=== PATIENT | female | born 1985 ===

== ENCOUNTER 2016-08-07 23:09 | Emergency (ER) | payer MEDICAID ==
[2016-08-07 23:20] VITALS: BP 112/75; PULSE 80; TEMP 98.1; O2SAT 98
--- NOTE | 2016-08-07 23:45 | C.PDOC ---
History Of Present Illness Patient is a 31 year old female who presents to the ER with a complaint of an itchy rash to her neck and upper chest. Patient states she has applied cortisone with no relief. Patient denies any SOB, throat swelling or difficulty swallowing. Time Seen by Provider: 08/07/16 23:34 Chief Complaint (Nursing): Abnormal Skin Integrity History Per: Patient History/Exam Limitations: no limitations Onset/Duration Of Symptoms: Hrs Current Symptoms Are (Timing): Still Present Location Of Injury: Anterior: Chest, Neck, Posterior: Neck Quality Of Symptoms: Itching Recent travel outside of the [place]: No Past Medical History Reviewed: Historical Data, Nursing Documentation, Vital Signs Vital Signs: Last Vital Signs Temp 98.1 F 08/07/16 23:18 Pulse 80 08/07/16 23:18 Resp 20 08/07/16 23:57 BP 112/75 08/07/16 23:18 Pulse Ox 98 08/08/16 01:18 - Medical History PMH: No Chronic Diseases - [facility] Procedures LAPAROSCOPIC CHOLECYSTECTOMY (10/11/12) Family History: States: Unknown Family Hx - Social History Hx Tobacco Use: No Hx Alcohol Use: No Hx Substance Use: No - Immunization History Hx Tetanus Toxoid Vaccination: No Hx Influenza Vaccination: No Hx Pneumococcal Vaccination: No Review Of Systems ENT: Negative for: Throat Swelling, Other (Difficulty swallowing) Respiratory: Negative for: Shortness of Breath Skin: Positive for: Rash Physical Exam - Physical Exam Appears: Non-toxic, No Acute Distress Skin: Warm, Dry, Rash (Hyperpigmented, scaly, around neck, greater to posterior aspect, extending to upper chest.) Head: Atraumatic, Normacephalic Eye(s): bilateral: Normal Inspection, PERRL Tongue: No Swelling Lips: No Swelling Neck: Normal, Normal ROM Respiratory: Normal Breath Sounds, No Rhonchi, No Wheezing Neurological/Psych: Oriented x3, Normal Speech, Normal Cognition ED Course And Treatment O2 Sat by Pulse Oximetry: 98 (Room air) Pulse Ox Interpretation: Normal Disposition Counseled Patient/Family Regarding: Diagnosis, Need For Followup, Rx Given - Disposition Referrals: [facility] [Outside] Disposition: HOME/ ROUTINE Disposition Time: 23:43 Condition: STABLE Additional Instructions: Keep skin clean and dry apply oint prescribed Follow up with your doctor Return to ER if worse Prescriptions: Cetirizine HCl [Zyrtec] 10 mg PO DAILY #20 tab.rapdis Triamcinolone 0.25% [Triamcinolone Acetonide] 1 appl TP BID #30 g Instructions: Dermatitis (ED) Forms: Work Excuse - Clinical Impression Clinical Impression: Dermatitis, Skin irritation - Scribe Statement The provider has reviewed the documentation as recorded by the Scribyara Orosco All medical record entries made by the Sakshiibyara were at my direction and personally dictated by me. I have reviewed the chart and agree that the record accurately reflects my personal performance of the history, physical exam, medical decision making, and the department course for this patient. I have also personally directed, reviewed, and agree with the discharge instructions and disposition.
[2016-08-07 23:57] VITALS: RESP 20
== END 2016-08-07 23:57 | disposition home or self-care (01) ==
LOC: C.ER 23:09
DX: L30.9 Dermatitis, unspecified (principal)

== ENCOUNTER 2016-09-06 13:27 | Emergency (ER) | payer MEDICAID ==
[2016-09-06] MEDS ORDERED: Sodium Chloride 0.9% 1,000 ML IV STA (14:16)
[2016-09-06 14:31] LABS: BASO # 0.1 K/uL (0.0-0.2); BASO % 0.6 % (0.0-2.0); EOS # 0.3 K/uL (0.0-0.7); EOS % 1.7 % (0.0-4.0); HEMOGLOBIN 13.5 g/dL (11.0-16.0); LYMPH # 2.3 K/uL (1.0-4.3); MEAN CELL VOLUME 89.8 fL (81.0-99.0); MEAN CORPUSCULAR HEMOGLOBIN 29.8 pg (27.0-31.0); MEAN CORPUSCULAR HGB CONC 33.2 g/dL (33.0-37.0); MEAN PLATELET VOLUME 7.1 fL (7.2-11.7); MONO # 1.5 K/uL (0.0-0.8); MONO % 9.9 % (0.0-10.0); NEUT # 11.3 K/uL (1.8-7.0); NEUT % 72.8 % (50.0-75.0); RBC 4.52 Mil/uL (3.80-5.20); RED CELL DISTRIBUTION WIDTH 13.2 % (11.5-14.5); WHITE BLOOD COUNT 15.5 K/uL (4.8-10.8)
[2016-09-06] MEDS ORDERED: Dexamethasone 4 mg/1 ml ONE (14:42)
[2016-09-06 14:59] LABS: ALBUMIN 3.8 g/dL (3.5-5.0)
[2016-09-06 15:02] LABS: GFR AFRICAN-AMERICAN > 60; GFR NON-AFRICAN AMERICAN > 60
[2016-09-06 15:03] LABS: ALB/GLOB RATIO 0.8 (1.0-2.1); ALT/SGPT 36 U/L (9-52); AST/SGOT 47 U/L (14-36); BLOOD UREA NITROGEN 10 mg/dL (7-17); CALCIUM 8.8 mg/dl (8.6-10.4)
--- NOTE | 2016-09-06 15:04 | C.PDOC ---
History Of Present Illness 31 yr old female presents to the ER with complaints of sore throat for the past 5 days. However, patient states she feels like her throat is getting swollen and finds it hard to swallow and talk. Patient denies fever, chest pain, SOB or vomiting. Time Seen by Provider: 09/06/16 13:40 Chief Complaint (Nursing): ENT Problem History Per: Patient History/Exam Limitations: None Onset/Duration Of Symptoms: Days (5), Worse Since (yesterday ) Past Medical History Reviewed: Historical Data, Nursing Documentation, Vital Signs Vital Signs: Last Vital Signs Temp 97.8 F 09/06/16 17:46 Pulse 80 09/06/16 17:46 Resp 18 09/06/16 17:46 BP 110/72 09/06/16 17:46 Pulse Ox 100 09/06/16 18:11 Surgical History: Cholecystectomy - [facility] Procedures LAPAROSCOPIC CHOLECYSTECTOMY (10/11/12) Family History: States: No Known Family Hx - Social History Hx Tobacco Use: No Hx Alcohol Use: No Hx Substance Use: No - Immunization History Hx Tetanus Toxoid Vaccination: No Hx Influenza Vaccination: No Hx Pneumococcal Vaccination: No Review Of Systems Except As Marked, All Systems Reviewed And Found Negative. Constitutional: Negative for: Fever ENT: Positive for: Throat Pain (Sore throat ), Throat Swelling, Other ((+) Hard to swallow and talk ) Cardiovascular: Negative for: Chest Pain Respiratory: Negative for: Shortness of Breath Gastrointestinal: Negative for: Vomiting Physical Exam - Physical Exam Appears: Non-toxic, No Acute Distress Skin: Warm, Dry, No Rash Head: Atraumatic, Normacephalic Oral Mucosa: Moist Throat: Erythema, Exudate, Other ((+) Hot potatoe voice. Swelling of the left peritonsillar area with uvula deviated to the right. ) Neck: Normal, Normal ROM, Supple Chest: Symmetrical, No Tenderness Cardiovascular: Rhythm Regular, No Murmur Respiratory: Normal Breath Sounds, No Rales, No Rhonchi, No Stridor, No Wheezing Extremity: Normal ROM, No Swelling Neurological/Psych: Oriented x3, Normal Speech, Normal Motor ED Course And Treatment - Laboratory Results Result Diagrams: 09/06/16 14:28 09/06/16 14:28 O2 Sat by Pulse Oximetry: 100 - CT Scan/US CT soft tissue neck Other Rad Studies (CT/US): Read By Radiologist, Radiology Report Reviewed CT/US Interpretation: Accession No. : [id number]. Patient Name / ID : PENG GAYLE / [id number]. Exam Date : 09/06/2016 15:55:00 ( Approved ). Study Comment : Sex / Age : F / 31Y. Creator : Shreyas Wolff MD. Dictator : Shreyas Wolff MD. Distance Learning Unit Leader : Plastic Tile Layer : Shreyas Wolff MD. Approver2 : Report Date : 09/06/2016 16:36:22. My Comment : . PROCEDURE: CT neck dated 09/06/2016. HISTORY: Questionable left peritonsillar abscess. COMPARISON: No prior. TECHNIQUE: CT of the neck w performed in standard fashion following intravenous injection of approximately 100 cc Omnipaque 350 contrast material. Additional 2 dimensional sagittal and coronal reformats generated. Radiation dose: DLP 408.61 mGy-cm. This CT exam was performed using one or more of the following dose reduction techniques: Automated exposure control, adjustment of the mA and/or kV according to patient size, and/or use of iterative reconstruction technique. . Findings: The at current study reveals enlargement of the palatine tonsils left greater than right. Findings may represent tonsillitis however no definitive evidence of discrete peritonsillar fluid collection seen at this time. Note however that streak and beam hardening artifact arising from dental amalgam as well as multiple on radiopaque jewelry a partially obscure the oral cavity. . The tonsils encroach into the oropharynx left greater than right, reducing diameter of the oropharyngeal airway. Adenoids are also well enlarged which encroach anteriorly reducing the nasopharyngeal airway. There is mild asymmetry of the vallecula which could be secondary to on encroachment of enlarged lingual tonsils and possibly some residual/retained secretion. Direct visualization could confirm. The free margin of the epiglottis is not well delineated. There is also asymmetry of the aryepiglottic folds and pyriform sinuses, the left- side of which are not visualized possibly due to some edema or residual/ retained secretion as well. Vocal cords are midline and appear symmetric. The remaining airway is patent. No large cervical mass or collection. There is enlargement of the jugulodigastric lymph nodes. The largest left-sided jugulodigastric lymph node measures approximately 18 mm. Largest right-sided jugulodigastric lymph node measures approximately 17.2 mm. These enlarged lymph nodes are likely reactive. There are additional multiple small to medium-sized bilateral cervical lymph nodes seen within the within the posterior cervical spaces, submandibular and submental regions. Parotid and submandibular glands unremarkable with no masses collections or calcifications. Crossing streak and beam hardening artifact arising from the dense clavicles and shoulder girdles on partially obscure the thyroid gland. Questionable small approximately 4 mm elliptical shaped low-attenuation anteromedial aspect left lobe thyroid gland. Thyroid ultrasound followup could be performed for further evaluation. Mild mucosal thickening left chamber sphenoid sinus. Avila. Lung apices are clear. . There is minor straightening and minimal reversal of the normal upper cervical lordosis which could be secondary to patient positioning gantry however underlying element of muscle spasm not excluded. Impression: There is enlargement of the palatine tonsils left greater than right most likely representing tonsillitis. No definitive evidence of peritonsillar abscess collection. . The tonsils encroach medially reducing the diameter of the ramirez pharyngeal airway. Enlarged adenoids and suspected mild enlargement of the lingual tonsils. The adenoids encroach anteriorly and reduce the nasopharyngeal airway. The lingual tonsils probably encroach posteriorly and inferiorly into the vallecula with asymmetric appearance of the vallecular. There is also asymmetry of the aryepiglottic folds and pyriform sinuses left- side of which are not visualized -nonspecific. Some residual and or retained secretion may contribute. Progress Note: On re-evaluation patient feels better, tolerates po, afebrile, no difficulty breathing. CT is negative for pertonsillar abscess. Case was d/w ED attending who agreed with the plan to d/c patient home. Medical Decision Making Medical Decision Making: PLAN: * CBC * CMP * Rapid Strep * HCG * Urinalysis * Decadron IVP * Toradol IVP * Sodium Chloride IV Disposition - Disposition Referrals: Jin Son MD [Staff Provider] - Disposition: HOME/ ROUTINE Disposition Time: 17:52 Condition: IMPROVED Additional Instructions: Follow up with PMD and ENT within 1-2 days. Return to ED if feel worse. Prescriptions: Clindamycin [Cleocin] 300 mg PO Q6 #28 cap Ibuprofen [Motrin Tab] 600 mg PO Q8 #30 tab Instructions: Tonsillitis (ED) - Clinical Impression Clinical Impression: Tonsillitis - PA / MAINTENANCE PERSON / Resident Statement MD/DO has reviewed & agrees with the documentation as recorded. - Scribe Statement The provider has reviewed the documentation as recorded by the Scribe Ofe Maldonado All medical record entries made by the Scribe were at my direction and personally dictated by me. I have reviewed the chart and agree that the record accurately reflects my personal performance of the history, physical exam, medical decision making, and the department course for this patient. I have also personally directed, reviewed, and agree with the discharge instructions and disposition.
[2016-09-06 15:42] VITALS: RESP 18
[2016-09-06] MEDS ORDERED: Iohexol 350mg/ml 100 ML ONE (15:42)
--- NOTE | 2016-09-06 16:37 | CT ---
PROCEDURE: CT neck dated 09/06/2016 HISTORY: Questionable left peritonsillar abscess COMPARISON: No prior TECHNIQUE: CT of the neck w performed in standard fashion following intravenous injection of approximately 100 cc Omnipaque 350 contrast material. Additional 2 dimensional sagittal and coronal reformats generated. Radiation dose: DLP 408.61 mGy-cm This CT exam was performed using one or more of the following dose reduction techniques: Automated exposure control, adjustment of the mA and/or kV according to patient size, and/or use of iterative reconstruction technique. . Findings: The at current study reveals enlargement of the palatine tonsils left greater than right. Findings may represent tonsillitis however no definitive evidence of discrete peritonsillar fluid collection seen at this time. Note however that streak and beam hardening artifact arising from dental amalgam as well as multiple on radiopaque jewelry a partially obscure the oral cavity. . The tonsils encroach into the oropharynx left greater than right, reducing diameter of the oropharyngeal airway. Adenoids are also well enlarged which encroach anteriorly reducing the nasopharyngeal airway There is mild asymmetry of the vallecula which could be secondary to on encroachment of enlarged lingual tonsils and possibly some residual/retained secretion. Direct visualization could confirm. The free margin of the epiglottis is not well delineated. There is also asymmetry of the aryepiglottic folds and pyriform sinuses, the left-side of which are not visualized possibly due to some edema or residual/ retained secretion as well. Vocal cords are midline and appear symmetric. The remaining airway is patent. No large cervical mass or collection. There is enlargement of the jugulodigastric lymph nodes. The largest left-sided jugulodigastric lymph node measures approximately 18 mm. Largest right-sided jugulodigastric lymph node measures approximately 17.2 mm. These enlarged lymph nodes are likely reactive. There are additional multiple small to medium-sized bilateral cervical lymph nodes seen within the within the posterior cervical spaces, submandibular and submental regions Parotid and submandibular glands unremarkable with no masses collections or calcifications. Crossing streak and beam hardening artifact arising from the dense clavicles and shoulder girdles on partially obscure the thyroid gland. Questionable small approximately 4 mm elliptical shaped low-attenuation anteromedial aspect left lobe thyroid gland. Thyroid ultrasound followup could be performed for further evaluation. Mild mucosal thickening left chamber sphenoid sinus. Avila Lung apices are clear. . There is minor straightening and minimal reversal of the normal upper cervical lordosis which could be secondary to patient positioning gantry however underlying element of muscle spasm not excluded. Impression: There is enlargement of the palatine tonsils left greater than right most likely representing tonsillitis. No definitive evidence of peritonsillar abscess collection. . The tonsils encroach medially reducing the diameter of the ramirez pharyngeal airway. Enlarged adenoids and suspected mild enlargement of the lingual tonsils. The adenoids encroach anteriorly and reduce the nasopharyngeal airway. The lingual tonsils probably encroach posteriorly and inferiorly into the vallecula with asymmetric appearance of the vallecular. There is also asymmetry of the aryepiglottic folds and pyriform sinuses left-side of which are not visualized -nonspecific. Some residual and or retained secretion may contribute. Enlarged bilateral jugulodigastric lymph nodes .
[2016-09-06] MEDS ORDERED: Clindamycin 600mg/50ml D5W 600 MG/50 ML VIAL IVPB STA (17:20)
[2016-09-06] MEDS ORDERED: Clindamycin 600mg/50ml D5W 600 MG/50 ML VIAL IVPB ONE (17:25)
[2016-09-06 17:47] VITALS: BP 110/72; PULSE 80; TEMP 97.8
[2016-09-06 18:10] VITALS: O2SAT 100
== END 2016-09-06 18:29 | disposition home or self-care (01) ==
LOC: C.ER 13:27
DX: J03.90 Acute tonsillitis, unspecified (principal)
CPT/HCPCS: 70491; 80053; 84703; 85025; 87070; 87086; 87430; 96361; 96365; 96375; 99283; J1100; J1885; J7040; Q9967

== ENCOUNTER 2017-03-02 12:29 | Emergency (ER) | payer MEDICAID ==
[2017-03-02 12:58] VITALS: BMI 25.8
[2017-03-02 13:03] VITALS: BP 116/83; PULSE 113; RESP 18; TEMP 99.6; O2SAT 100
[2017-03-02] MEDS ORDERED: Amoxicillin-Clav 875-125 mg Tab PO STA (13:37)
[2017-03-02] MEDS ORDERED: Dexamethasone 4 mg/1 ml IM STA (13:37)
[2017-03-02] MEDS ORDERED: Dexamethasone 4 mg/1 ml ONE (13:47)
[2017-03-02] MEDS ORDERED: Amoxicillin-Clav 875-125 mg Tab PO ONE (13:47)
--- NOTE | 2017-03-02 14:18 | C.PDOC ---
Time Seen by Provider: 03/02/17 13:27 Chief Complaint (Nursing): ENT Problem History Per: Patient Onset/Duration Of Symptoms: Days (1) Current Symptoms Are (Timing): Still Present Location Of Pain: Throat Associated Symptoms: Sore Throat Severity: Moderate Additional History Per: Prior Records Past Medical History Reviewed: Historical Data, Nursing Documentation, Vital Signs Vital Signs: Last Vital Signs Temp 99.6 F 03/02/17 12:58 Pulse 113 H 03/02/17 12:58 Resp 18 03/02/17 12:58 BP 116/83 03/02/17 12:58 Pulse Ox 100 03/02/17 14:18 - Medical History PMH: No Chronic Diseases Surgical History: Cholecystectomy - [facility] Procedures LAPAROSCOPIC CHOLECYSTECTOMY (10/11/12) Family History: States: Unknown Family Hx - Social History Hx Tobacco Use: Yes Hx Alcohol Use: No Hx Substance Use: No - Immunization History Hx Tetanus Toxoid Vaccination: No Hx Influenza Vaccination: No Hx Pneumococcal Vaccination: No Review Of Systems Except As Marked, All Systems Reviewed And Found Negative. Constitutional: Negative for: Fever ENT: Positive for: Throat Pain, Throat Swelling Respiratory: Negative for: Cough, Shortness of Breath Gastrointestinal: Negative for: Vomiting, Abdominal Pain Musculoskeletal: Negative for: Neck Pain Skin: Negative for: Rash Neurological: Negative for: Weakness, Numbness Physical Exam - Physical Exam Appears: Non-toxic, No Acute Distress Skin: Normal Color, Warm, Dry, No Rash Head: Atraumatic, Normacephalic Eye(s): bilateral: Normal Inspection, PERRL, EOMI Oral Mucosa: Moist, No Drooling, No Trismus Throat: Exudate, No Drooling, No Mass, Other (symmetrically enlarged tonsils) Neck: Normal ROM, Supple Lymphatic: No Adenopathy Cardiovascular: Rhythm Regular Respiratory: Normal Breath Sounds, No Accessory Muscle Use, No Stridor Gastrointestinal/Abdominal: Soft, No Tenderness, No Organomegaly Back: No CVA Tenderness Extremity: Normal ROM Neurological/Psych: Oriented x3, Normal Speech, Normal Motor, Normal Sensation ED Course And Treatment O2 Sat by Pulse Oximetry: 100 Pulse Ox Interpretation: Normal Reassessment Condition: Improved Disposition Counseled Patient/Family Regarding: Diagnosis, Need For Followup, Rx Given - Disposition Referrals: Jin Son MD [Staff Provider] - Disposition: HOME/ ROUTINE Disposition Time: 14:20 Condition: STABLE Additional Instructions: Follow up with an ENT specialist for further evaluation and treatment. Return to the ER if you develop trouble breathing or swallowing, drooling, worsening of symptoms or if you have any other concerns. Prescriptions: Amoxicillin/Clavulanate [Augmentin 875 MG-125 MG] 1 tab PO BID #14 tab Instructions: Tonsillitis (ED) Forms: [employer] (Maori) - Clinical Impression Clinical Impression: Tonsillitis
== END 2017-03-02 14:29 | disposition home or self-care (01) ==
LOC: C.ER 12:29
DX: J03.90 Acute tonsillitis, unspecified (principal); F17.210 Nicotine dependence, cigarettes, uncomplicated
CPT/HCPCS: 96372; 99283; J1100

== ENCOUNTER 2017-05-14 03:00 | Emergency (ER) | payer MEDICAID ==
[2017-05-14 03:00] VITALS: BMI 25.8
[2017-05-14] MEDS ORDERED: Oxycodone/Acetaminophen 5/325 mg Tab PO STA (03:32)
[2017-05-14] MEDS ORDERED: Oxycodone/Acetaminophen 5/325 mg Tab ONE (03:38)
[2017-05-14 04:21] VITALS: BP 123/80; PULSE 82; RESP 18; TEMP 97.7; O2SAT 99
--- NOTE | 2017-05-14 04:28 | C.PDOC ---
History Of Present Illness 32 year old female presents to the ED c/o toothache that started 2 days ago. Patient reports she cracked her right upper molar. Patient has an appointment to see her dentist tomorrow but presents today because pain is unbearable. Patient denies fever, chills, nausea, vomit, trauma, injury, fall. Time Seen by Provider: 05/14/17 03:15 Chief Complaint (Nursing): Dental Pain History Per: Patient History/Exam Limitations: no limitations Onset/Duration Of Symptoms: Days Current Symptoms Are (Timing): Still Present Quality: Positive for: "Pain" Recent travel outside of the [place]: No Additional History Per: Patient Past Medical History Reviewed: Historical Data, Nursing Documentation, Vital Signs Vital Signs: Last Vital Signs Temp 97.7 F 05/14/17 04:20 Pulse 82 05/14/17 04:20 Resp 18 05/14/17 04:20 BP 123/80 05/14/17 04:20 Pulse Ox 99 05/14/17 04:28 - Medical History PMH: No Chronic Diseases Surgical History: Cholecystectomy (Gallstone removed) - [facility] Procedures LAPAROSCOPIC CHOLECYSTECTOMY (10/11/12) Family History: States: Unknown Family Hx - Social History Hx Tobacco Use: Yes Hx Alcohol Use: No Hx Substance Use: No - Immunization History Hx Tetanus Toxoid Vaccination: No Hx Influenza Vaccination: No Hx Pneumococcal Vaccination: No Review Of Systems Constitutional: Negative for: Fever, Chills ENT: Positive for: Mouth Pain, Mouth Swelling. Negative for: Throat Pain, Throat Swelling Cardiovascular: Negative for: Chest Pain Respiratory: Negative for: Cough, Shortness of Breath Gastrointestinal: Negative for: Nausea, Vomiting, Abdominal Pain Musculoskeletal: Negative for: Neck Pain Skin: Negative for: Rash Physical Exam - Physical Exam Appears: Non-toxic, No Acute Distress Skin: Normal Color, Warm, Dry Head: Atraumatic, Normacephalic Eye(s): bilateral: Normal Inspection Nose: No Discharge Oral Mucosa: Moist Tongue: No Swelling Lips: No Swelling Teeth: Tender To Palpation (right upper molar), No Loose, No Avulsed, Other ( right upper molar tooth cracked ) Gingiva: No Bleeding Throat: Normal, No Erythema, No Exudate Neck: Normal ROM, Supple Neurological/Psych: Oriented x3, Normal Speech Gait: Steady ED Course And Treatment O2 Sat by Pulse Oximetry: 99 (On RA) Pulse Ox Interpretation: Normal Medical Decision Making Medical Decision Making: Impression: dental pain Plan: * Percocet 1 tab PO * Penicillin 500 mg PO Disposition - Disposition Disposition: HOME/ ROUTINE Disposition Time: 04:26 Condition: IMPROVED Additional Instructions: Follow up with your dentist within 1-2 days. Return to ED if feel worse. Prescriptions: Penicillin VK [Penicillin VK Tab] 500 mg PO Q6H #28 tab oxyCODONE/Acetaminophen [Percocet 5/325 mg Tab] 1 tab PO QID PRN #20 tab PRN Reason: Pain Instructions: Dental Pain (DC), Oxycodone and Acetaminophen, Penicillin V Potassium Forms: [employer] (Luxembourgish) - Clinical Impression Clinical Impression: Toothache - PA / MILITARY TECHNICIAN / Resident Statement MD/DO has reviewed & agrees with the documentation as recorded. - Scribe Statement The provider has reviewed the documentation as recorded by the Scribe Alexey Boykin All medical record entries made by the Scribe were at my direction and personally dictated by me. I have reviewed the chart and agree that the record accurately reflects my personal performance of the history, physical exam, medical decision making, and the department course for this patient. I have also personally directed, reviewed, and agree with the discharge instructions and disposition.
== END 2017-05-14 04:39 | disposition home or self-care (01) ==
LOC: C.ER 03:00
DX: K08.89 Other specified disorders of teeth and supporting structures (principal)